=== PATIENT | male | born 1985 | race Hispanic/Latino ===

== ENCOUNTER 2023-12-28 23:30 | Inpatient (IN) | payer OTHER, SELFPAY ==
[~2023-12-28 23:30] MED LIST: Iopamidol-370 76% 500 ML MDV (1 ML CHARGE) ONE
[2023-12-28] MEDS ORDERED: Rocuronium Bromide 10 MG/ML (10ML VIAL) ONE (23:41)
[2023-12-28] MEDS ORDERED: Etomidate 40 MG (20 mL) VIAL ONE (23:41)
[2023-12-28] MEDS ORDERED: Propofol 1,000 MG/100 ML VIAL IV ONE (23:45)
[2023-12-28] MEDS ORDERED: Fentanyl CADD 100 ML IV SCH (23:45)
[2023-12-28 23:53] LABS: #Basophils 0.03 10x3/uL (0.0-0.2); #Eosinphils Less than 0.03 10x3/uL (0.0-0.7); %Basophils 0.3 % (0.0-1.0); %Eosinophils 0.1 % (0.0-10.0); %Monocytes 4.2 % (0.0-10.0); %Neutrophils 84.9 % (42.0-75.0); Hematocrit 41.4 % (42.0-52.0); Hemoglobin 14.8 g/dL (14.0-18.0); Mean Corpuscular HGB CONC 35.7 g/dL (32.0-36.0); Mean Corpuscular Hemoglobin 31.6 pg (27.0-31.0); Mean Corpuscular Volume 88.5 fL (78.0-98.0); Mean Platelet Volume 10.6 fL (7.4-10.4); Platelet Count 326 10x3/uL (130-400); RBC Distribution Width 12.3 % (11.5-14.5); Red Blood Cell (RBC) Count 4.68 mill/uL (4.70-6.10)
[2023-12-29 00:01] LABS: Prothrombin Time 13.5 sec (12.0-14.7)
[2023-12-29 00:02] LABS: PTT 24.7 sec (22.9-36.1)
[2023-12-29 00:17] LABS: Acetaminophen Less than 10 mcg/mL (10.0-30.0); Alcohol 186.1 mg/dL (Less than 10); CK (CPK) 100 U/L (30-200); Lipase 11 U/L (8-78); Magnesium 1.8 mg/dL (1.6-2.6); Salicylate Less than 8.0 mg/dL (15.0-30.0)
[2023-12-29 00:24] LABS: Troponin I Less than 0.010 ng/mL (< 0.028)
[2023-12-29 00:43] LABS: ALT (SGPT) 22 U/L (8-55); AST (SGOT) 22 U/L (5-34); Albumin 4.3 g/dL (3.5-5.0); Alkaline Phosphatase 117 U/L (40-110); Anion Gap 24 mmol/L (10-20); BUN (Urea Nitrogen) 5 mg/dL (8.9-20.6); Bilirubin, Total 0.4 mg/dL (0.2-1.2); Calc. Creatinine Clearance 0 mL/min (70-130); Calcium 9.2 mg/dL (7.8-10.44); Carbon Dioxide 16 mmol/L (22-29); Chloride 104 mmol/L (98-107); Estimated GFR 113; Globulin 3.1 g/dL (2.4-3.5); Glucose 448 mg/dL (70-105); Potassium 3.7 mmol/L (3.5-5.1); Protein, Total 7.4 g/dL (6.0-8.3); Sodium 140 mmol/L (136-145)
[2023-12-29 00:52] LABS: Actual Bicarbonate (HCO3a) 16.6 mEq/L (22-28); Analyzer IN Cardio ER; CO2 Tension 31.6 mmHg (35.0-45.0); Carboxyhemoglobin (COHb) 0.5 gm% (0.0-3.0); Hematocrit-ABG 40 % (42.0-52.0); Hemoglobin (Hb) 13.5 g/dL (14.0-18.0); O2 Tension (PaO2), arterial 319.1 mmHg (80.0-100.0); Potassium - ABG Lab 3.72 mmol/L (3.70-5.30); pH, Arterial 7.339 (7.35-7.45)
[2023-12-29 00:53] LABS: Puncture Site LBA
[2023-12-29] MEDS ORDERED: Boostrix 0.5 ML (Tdap) VIAL (>/=7 yrs of age) ONE (01:28)
[2023-12-29] MEDS ORDERED: Rocuronium Bromide 10 MG/ML (10ML VIAL) ONE (01:37)
[2023-12-29] MEDS ORDERED: LORazepam 2 MG/ML SYR.(CARPUJECT) ONE (01:58)
[2023-12-29 02:27] LABS: Amphetamine Not Detected (NotDetected); Bacteria/HPF None Seen HPF (None Seen); Barbiturates Screen Not Detected (NotDetected); Benzodiazepine Screen Not Detected (NotDetected); Bilirubin Negative (Negative); Blood, Urine Negative (Negative); CAUTI Indications for Culture Alt mental st,lethar; Clarity Clear (Clear); Cocaine Metabolite Screen Detected (NotDetected); Glucose, Urine (Dipstick) Greater than 1000 mg/dL (Negative); Ketone, Urine 10 mg/dL (Negative); Leukocyte Negative Leu/uL (Negative); Methadone Not Detected (NotDetected); Methamphetamine Not Detected (NotDetected); Nitrite Negative (Negative); Opiate Screen Not Detected (NotDetected); Oxycodone Screen Not Detected (NotDetected); Phencyclidine (PCP) Not Detected (NotDetected); Protein, Urine (Dipstick) Negative (Neg-Trace); RBC/HPF 0-3 HPF (0-3); Specific Gravity, Urine 1.043 (1.002-1.036); Squamous Epithelial None Seen HPF (0-3); THC/Cannabinoid Screen Not Detected (NotDetected); Tricyclic Screen Not Detected (NotDetected); Urobilinogen Normal mg/dL (Less than 2); WBC/HPF 0-3 HPF (0-3); pH, Urine 5.5 (5.0-9.0)
[2023-12-29] MEDS ORDERED: Dexmedetomidine 1,000 MCG in NS 250 mL IVPB SCH (02:30)
[2023-12-29] MEDS ORDERED: Electrolyte Replacement Protocol 1 EACH FS PRN (02:31)
[2023-12-29] MEDS ORDERED: Glucagon 1 MG/ML KIT IM PRN (02:31)
[2023-12-29] MEDS ORDERED: Dextrose 5% in Water 1,000 ML IV PRN (02:31)
[2023-12-29] MEDS ORDERED: Dextrose 50% Abboject 50 ML SYRINGE SLOW IVP PRN (02:31)
[2023-12-29] MEDS ORDERED: DISCONTINUE PREVIOUS NARCOTIC PAIN MEDICATIONS AND BENZODIAZEPINES FS SCH (02:45)
[2023-12-29] MEDS ORDERED: Fentanyl CADD 100 ML IV SCH (02:45)
[2023-12-29] MEDS ORDERED: Propofol BOLUS 1,000 MG/100 ML VIAL IV PRN (02:45)
[2023-12-29] MEDS ORDERED: Fentanyl BOLUS 250 ML IVPB PRN (02:45)
[2023-12-29 02:48] LABS: Urine Culture Reflex No No
[2023-12-29] MEDS ORDERED: Propofol 1,000 MG/100 ML VIAL IV ONE (02:48)
[2023-12-29 02:57] LABS: Lactic Acid 3.9 mmol/L (0.5-2.2)
[2023-12-29 03:42] VITALS: BMI 24.4
[2023-12-29] MEDS: Lactated Ringer's 1,000 ML IV SCH ×2 (04:18→05:04)
[2023-12-29] MEDS: Magnesium 2 GM/50 ML(in water) 2 GM in Premix 1 BAG IVPB SCH (04:22)
[2023-12-29 04:50] LABS: #Basophils 0.03 10x3/uL (0.0-0.2); #Eosinphils Less than 0.03 10x3/uL (0.0-0.7); %Basophils 0.3 % (0.0-1.0); %Eosinophils 0.1 % (0.0-10.0); %Lymphocytes 17.4 % (21.0-51.0); %Monocytes 6.6 % (0.0-10.0); %Neutrophils 75.2 % (42.0-75.0); Hematocrit 36.3 % (42.0-52.0); Hemoglobin 12.3 g/dL (14.0-18.0); Mean Corpuscular HGB CONC 33.9 g/dL (32.0-36.0); Mean Corpuscular Hemoglobin 31.1 pg (27.0-31.0); Mean Corpuscular Volume 91.7 fL (78.0-98.0); Mean Platelet Volume 10.9 fL (7.4-10.4); Platelet Count 259 10x3/uL (130-400); RBC Distribution Width 12.5 % (11.5-14.5); Red Blood Cell (RBC) Count 3.96 mill/uL (4.70-6.10)
[2023-12-29] MEDS: Ventilator Sedation Protocol 1 EACH FS ONE (05:05)
[2023-12-29 05:11] LABS: Lactic Acid 3.4 mmol/L (0.5-2.2)
[2023-12-29 05:19] LABS: Alcohol 30.8 mg/dL (Less than 10)
[2023-12-29 05:32] LABS: ALT (SGPT) 16 U/L (8-55); AST (SGOT) 21 U/L (5-34); Albumin 3.3 g/dL (3.5-5.0); Alkaline Phosphatase 82 U/L (40-110); Anion Gap 18 mmol/L (10-20); BUN (Urea Nitrogen) 5 mg/dL (8.9-20.6); Bilirubin, Total 0.6 mg/dL (0.2-1.2); Calc. Creatinine Clearance 144 mL/min (70-130); Calcium 7.7 mg/dL (7.8-10.44); Carbon Dioxide 14 mmol/L (22-29); Chloride 112 mmol/L (98-107); Estimated GFR 125; Globulin 2.5 g/dL (2.4-3.5); Glucose 297 mg/dL (70-105); Potassium 3.6 mmol/L (3.5-5.1); Protein, Total 5.8 g/dL (6.0-8.3); Sodium 140 mmol/L (136-145)
[2023-12-29] MEDS: Sodium Bicarbonate 150 MEQ in Dextrose 5% in Water 1,000 ML IV SCH (06:30)
[2023-12-29] MEDS: HumaLOG 300 UNITS/3 ML VIAL SC PRN (06:30)
[2023-12-29 07:42] LABS: Actual Bicarbonate (HCO3a) 20.8 mEq/L (22-28); Base Excess (BEa) -1.7 mEq/L (-2.0 to +3.0); CO2 Tension 29.1 mmHg (35.0-45.0); Carboxyhemoglobin (COHb) 0.8 gm% (0.0-3.0); Hematocrit-ABG 37 % (42.0-52.0); Hemoglobin (Hb) 12.5 g/dL (14.0-18.0); O2 Tension (PaO2), arterial 124.5 mmHg (80.0-100.0); Potassium - ABG Lab 3.23 mmol/L (3.70-5.30); pH, Arterial 7.473 (7.35-7.45)
[2023-12-29 07:43] LABS: Puncture Site RRA
[2023-12-29 07:44] LABS: ALV-art Gradient 53.025 mmHg (0-20)
[2023-12-29] MEDS: Famotidine 20 MG TAB PER TUBE SCH (07:56)
[2023-12-29] MEDS: Propofol 1,000 MG/100 ML VIAL IV PRN (09:01)
[2023-12-29 11:41] LABS: Anion Gap 15 mmol/L (10-20); BUN (Urea Nitrogen) 6 mg/dL (8.9-20.6); Calc. Creatinine Clearance 156 mL/min (70-130); Calcium 7.7 mg/dL (7.8-10.44); Carbon Dioxide 20 mmol/L (22-29); Chloride 110 mmol/L (98-107); Estimated GFR 128; Glucose 238 mg/dL (70-105); Potassium 3.1 mmol/L (3.5-5.1); Sodium 142 mmol/L (136-145)
[2023-12-29 12:18] VITALS: BMI 24.4
[2023-12-29] MEDS: Potassium Chloride 20 MEQ in Premix 1 BAG IVPB SCH (12:58)
[2023-12-29] MEDS: Lorazepam 2 MG/ML VIAL SLOW IVP PRN (15:21)
[2023-12-29] MEDS: Sodium Chloride 0.45% 1,000 ML IV SCH (15:46)
[2023-12-29 19:40] LABS: Potassium 4.1 mmol/L (3.5-5.1)
[2023-12-29] MEDS: Famotidine/PF 20 mg/2ml Vial SLOW IVP SCH (20:41)
[2023-12-30] MEDS: Morphine 2 MG/ML VIAL SLOW IVP PRN (07:15)
[2023-12-30 08:17] VITALS: BP 143/97
[2023-12-30 09:47] LABS: #Basophils Less than 0.03 10x3/uL (0.0-0.2); #Eosinphils Less than 0.03 10x3/uL (0.0-0.7); %Basophils 0.2 % (0.0-1.0); %Eosinophils 0.1 % (0.0-10.0); %Lymphocytes 10.7 % (21.0-51.0); %Monocytes 6.7 % (0.0-10.0); Hematocrit 41.3 % (42.0-52.0); Hemoglobin 14.1 g/dL (14.0-18.0); Mean Corpuscular HGB CONC 34.1 g/dL (32.0-36.0); Mean Corpuscular Hemoglobin 31.9 pg (27.0-31.0); Mean Corpuscular Volume 93.4 fL (78.0-98.0); Mean Platelet Volume 10.6 fL (7.4-10.4); Platelet Count 256 10x3/uL (130-400); RBC Distribution Width 12.5 % (11.5-14.5); Red Blood Cell (RBC) Count 4.42 mill/uL (4.70-6.10)
[2023-12-30 10:10] LABS: Anion Gap 15 mmol/L (10-20); BUN (Urea Nitrogen) 5 mg/dL (8.9-20.6); Calc. Creatinine Clearance 144 mL/min (70-130); Calcium 8.5 mg/dL (7.8-10.44); Carbon Dioxide 19 mmol/L (22-29); Chloride 107 mmol/L (98-107); Estimated GFR 126; Glucose 193 mg/dL (70-105); Potassium 3.1 mmol/L (3.5-5.1); Sodium 138 mmol/L (136-145)
[2023-12-30] MEDS: Ondansetron PF 4 MG/2 ML Vial IVP PRN (11:51)
[2023-12-30] MEDS: Potassium Chloride 20 MEQ in Premix 1 BAG IVPB SCH (12:06)
[2023-12-30] MEDS ORDERED: traMADol HCl 50 MG TAB PO PRN (12:57)
[2023-12-30] MEDS: Acetaminophen 325 MG TAB PO SCH (14:05)
[2023-12-30] MEDS ORDERED: Morphine 2 MG/ML VIAL SLOW IVP PRN (15:11)
[2023-12-30] MEDS: Scopolamine 1 mg/72 hour Patch TOP SCH (15:19)
[2023-12-30] MEDS: Ketorolac Tromethamine 30 MG (1 mL) VIAL IVP PRN (17:19)
[2023-12-30] MEDS: Dexamethasone 4 mg/ml Vial SLOW IVP SCH (17:19)
[2023-12-30] MEDS: traMADol HCl 50 MG TAB PO SCH (17:39)
[2023-12-30] MEDS ORDERED: Ciprofloxacin 0.3% Ophth Soln 2.5 ml Bottle L EAR SCH (21:00)
[2023-12-31] MEDS: HumaLOG 300 UNITS/3 ML VIAL SC PRN (00:18)
[2024-01-01 06:05] VITALS: TEMP 97.8
== END 2024-01-01 11:54 | disposition home or self-care (01) | DRG 85 ==
LOC: ERS 23:30 → EDBD 23:30 → CCU 12-29 02:06 → EEVIPCON 12-29 02:06 → IMCU/EMU 12-29 03:04
PROVIDERS: ADMIT Surgery; ATTEND Surgery
PROC: 0BH17EZ Insertion of Endotracheal Airway into Trachea, Via Natural or Artificial Opening (ICD-10-PCS; principal; 2023-12-29)
PROC: 4A133R1 Monitoring of Arterial Saturation, Peripheral, Percutaneous Approach (ICD-10-PCS; 2023-12-29)
PROC: 5A1945Z Respiratory Ventilation, 24-96 Consecutive Hours (ICD-10-PCS; 2023-12-29)
DX: S02.19XA Other fracture of base of skull, initial encounter for closed fracture (principal); G93.41 Metabolic encephalopathy; J96.01 Acute respiratory failure with hypoxia; E87.20 Acidosis, unspecified; S05.31XA Ocular laceration without prolapse or loss of intraocular tissue, right eye, initial encounter; F10.129 Alcohol abuse with intoxication, unspecified; F14.90 Cocaine use, unspecified, uncomplicated; S01.111A Laceration without foreign body of right eyelid and periocular area, initial encounter; S01.511A Laceration without foreign body of lip, initial encounter; S02.2XXA Fracture of nasal bones, initial encounter for closed fracture; R73.9 Hyperglycemia, unspecified; Y90.6 Blood alcohol level of 120-199 mg/100 ml; Y09 Assault by unspecified means
CPT/HCPCS: 31500; 36415; 36416; 36600; 51702; 70450; 70480; 70486; 71045; 71260; 72125; 74177; 80048; 80053; 80306; 80307; 81001; 82010; 82550; 82805; 83605; 83690; 83735; 84484; 85025; 85610; 85730; 86850; 86900; 86901; 87040; 90471; 90715; 93005; 94002; 94003; 96365; 96366; 96375; J1100; J1815; J1885; J2060; J2272; J2405; J2704; J3475; J3480; J7050; J7070; J7120; Q9967; S0028